=== PATIENT | female | born 2000 | race Caucasian/White ===

== ENCOUNTER 2021-08-03 08:07 | Emergency (ER) | payer BC ==
[2021-08-03 09:03] LABS: HEMOGLOBIN 12.3 gm/dl (12.3-15.3); RED BLOOD COUNT 4.77 M/UL (4.00-5.10); WHITE BLOOD COUNT 7.4 K/UL (4.5-11.0)
[2021-08-03 09:17] LABS: BORDETELLA PARAPERTUSSIS Not Detected (Not Detectd); BORDETELLA PERTUSSIS Not Detected (Not Detectd); CHLAMYDIA PNEUMONIAE Not Detected (Not Detectd); CORONAVIRUS HKU1 Not Detected (Not Detectd); CORONAVIRUS NL63 Not Detected (Not Detectd); CORONAVIRUS OC43 Not Detected (Not Detectd); CORONOAVIRUS 229E Not Detected (Not Detectd); HUMAN METAPNEUMOVIRUS Not Detected (Not Detectd); HUMAN RHINOVIRUS/ENTEROVIRUS Not Detected (Not Detectd); INFLUENZA A Not Detected (Not Detectd); INFLUENZA B Not Detected (Not Detectd); MYCOPLASMA PNEUMONIAE Not Detected (Not Detectd); PARAINFLUENZA VIRUS 1 Not Detected (Not Detectd); PARAINFLUENZA VIRUS 2 Not Detected (Not Detectd); PARAINFLUENZA VIRUS 4 Not Detected (Not Detectd); RESPIRATORY SYNCYTIAL VIRUS Not Detected (Not Detectd)
[2021-08-03 09:25] LABS: BUN/CREATININE RATIO 8 (0-10)
[2021-08-03 10:22] LABS: PARAINFLUENZA VIRUS 3 DETECTED (Not Detectd); SARS-CoV-2 NOT DETECTED (Not Detectd)
[2021-08-03] MEDS ORDERED: DOXYCYCLINE HY100 MG PO (10:41)
[2021-08-03] MEDS ORDERED: BENZONATATE200 MG PO (10:45)
== END 2021-08-03 10:55 | disposition home or self-care (01) ==
LOC: EDBD 08:07 → ER1 08:07
PROVIDERS: Physician Assistant
DX: J11.08 Influenza due to unidentified influenza virus with specified pneumonia (principal); J18.1 Lobar pneumonia, unspecified organism; I10 Essential (primary) hypertension; Z88.0 Allergy status to penicillin; Z20.822 Contact with and (suspected) exposure to COVID-19
CPT/HCPCS: 71046; 80053; 82550; 82553; 84484; 85025; 87633; 93005; 96374; 99284; J1885

== ENCOUNTER → 2021-11-07 | Outpatient (CLI) | payer BC ==
[~2021-11-07] MED LIST: BENZONATATE200 MG PO; DOXYCYCLINE HY100 MG PO
== END ==
LOC: EXRD 11-05 09:00
DX: R10.84 Generalized abdominal pain (principal)
CPT/HCPCS: 76700